=== PATIENT | female | born 1980 | race African-American/Black ===

== ENCOUNTER 2017-02-28 01:43 | Inpatient (IN) | payer BC ==
[~2017-02-28] VITALS: Ht 167.6 cm; Wt 120.8 kg
[2017-02-28 05:01] LABS: PLATELET COUNT 313 x10^3mcL (130-400)
[2017-02-28 05:04] LABS: BASOPHIL % 3.7 % (0-2); RED CELL DISTRIBUTION WIDTH 19.3 % (11.5-14.5)
[2017-02-28 05:06] LABS: CARBON DIOXIDE 22.4 mmol/L (21-32); CHLORIDE SERUM 107 mmol/L (98-107); CREATININE SERUM 0.6 mg/dL (0.6-1.0); GFR1 > 60 mL/min; GLUCOSE SERUM 97 mg/dL (74-106); POTASSIUM SERUM 3.9 mmol/L (3.5-5.1); SODIUM SERUM 140 mmol/L (136-145)
[2017-02-28 05:12] LABS: ALBUMIN 3.5 g/dL (3.4-5.0); ALKALINE PHOSPHATASE 67 U/L (46-116); ALT/SGPT 33 U/L (14-59); AST/SGOT 31 U/L (15-37); BILIRUBIN TOTAL 0.26 mg/dL (0.20-1.00)
[2017-02-28 05:20] LABS: TOTAL PROTEIN, SERUM 8.4 g/dL (6.4-8.2)
[2017-02-28 09:48] VITALS: BP 155/90
[2017-02-28 10:52] LABS: T3 TOTAL 0.86 ng/mL
[2017-02-28 10:55] LABS: CHOLESTEROL/HDL RATIO 1.8; MAGNESIUM 1.8 mg/dL (1.8-2.4)
[2017-02-28 10:58] LABS: FREE T4 1.19 ng/dL (0.76-1.46); FREE THYROXINE INDEX 3.2 ug/dL (1.4-4.5); T4(THYROXINE) 8.8 ug/dL (4.7-13.3)
[2017-02-28 12:06] VITALS: BP 148/91
[2017-02-28 17:52] VITALS: BP 138/88
[2017-02-28 21:38] VITALS: BP 140/91
[2017-03-01 06:15] VITALS: BP 139/90
[2017-03-01 06:34] LABS: CARBON DIOXIDE 27.3 mmol/L (21-32); CHLORIDE SERUM 105 mmol/L (98-107); CREATININE SERUM 0.6 mg/dL (0.6-1.0); GFR1 > 60 mL/min; GLUCOSE SERUM 99 mg/dL (74-106); POTASSIUM SERUM 3.8 mmol/L (3.5-5.1); SODIUM SERUM 137 mmol/L (136-145)
[2017-03-01 06:54] LABS: BASOPHIL % 0.8 % (0-2); PLATELET COUNT 257 x10^3mcL (130-400)
[2017-03-01 07:06] LABS: RED CELL DISTRIBUTION WIDTH 17.5 % (11.5-14.5)
[2017-03-01 07:30] VITALS: BP 162/97
[2017-03-01 11:35] VITALS: BP 131/79
[2017-03-01 16:10] VITALS: BP 141/99
[2017-03-01 19:51] LABS: microscopic required? NO
[2017-03-01 19:58] LABS: urine erythrocyte NEGATIVE (NEGATIVE)
[2017-03-01 20:10] LABS: AMPHETAMINE QUAL UR NONE DETECTED (NEG <=1000)
[2017-03-01 20:54] VITALS: BP 120/63
[2017-03-02 05:14] VITALS: BP 124/79
[2017-03-02 06:40] LABS: CALCIUM 8.1 mg/dL (8.5-10.1); CARBON DIOXIDE 25.7 mmol/L (21-32); CHLORIDE SERUM 105 mmol/L (98-107); CREATININE SERUM 0.5 mg/dL (0.6-1.0); GFR1 > 60 mL/min; GLUCOSE SERUM 107 mg/dL (74-106); MAGNESIUM 1.7 mg/dL (1.8-2.4); POTASSIUM SERUM 3.6 mmol/L (3.5-5.1); SODIUM SERUM 138 mmol/L (136-145)
[2017-03-02 06:54] LABS: PLATELET COUNT 254 x10^3mcL (130-400)
[2017-03-02 06:55] LABS: BASOPHIL % 0 % (0-2); RED CELL DISTRIBUTION WIDTH 18.8 % (11.5-14.5)
[2017-03-02 06:56] LABS: rbc morphology (normal/abnorm) ABNORMAL (NORMAL)
[2017-03-02] MEDS ORDERED: CLEOCIN HCL300 MG PO (09:36)
[2017-03-02] MEDS ORDERED: LAC PO (09:37)
[2017-03-02] MEDS ORDERED: NOR10T PO (09:37)
[2017-03-02] MEDS ORDERED: DOK100 M3 PO (09:39)
[2017-03-02 11:43] VITALS: BP 124/79
[2017-03-02 11:46] VITALS: Ht 167.6 cm; Wt 120.8 kg
== END 2017-03-02 13:20 | disposition home or self-care (01) | DRG 907 ==
LOC: ED 01:43 → DU 08:39
PROVIDERS: Emergency Medicine Emergency Medical Services; Surgery; ADMIT Family Medicine
PROC: 0J980ZZ Drainage of Abdomen Subcutaneous Tissue and Fascia, Open Approach (ICD-10-PCS; principal; 2017-03-01 08:00)
DX: L76.34 Postprocedural seroma of skin and subcutaneous tissue following other procedure (principal); N17.0 Acute kidney failure with tubular necrosis; Z68.41 Body mass index [BMI] 40.0-44.9, adult; N13.30 Unspecified hydronephrosis; R73.03 Prediabetes; F41.9 Anxiety disorder, unspecified; D50.9 Iron deficiency anemia, unspecified; E66.01 Morbid (severe) obesity due to excess calories; Z88.5 Allergy status to narcotic agent; Z88.8 Allergy status to other drugs, medicaments and biological substances; Z90.49 Acquired absence of other specified parts of digestive tract
CPT/HCPCS: 83880; 84439; 94150; J1170; J1200; J1580; J1885; J2175; J2250; J2270; J2405; J3010; J3490; J7030; Q0092; Q9967

== ENCOUNTER 2017-03-06 16:44 | Observation (INO) | payer BC ==
[~2017-03-06] VITALS: Ht 167.6 cm; Wt 122.1 kg
[~2017-03-06 16:44] MED LIST: CLEOCIN HCL300 MG PO; DOK100 M3 PO; LAC PO; NOR10T PO
[2017-03-06 17:18] LABS: BASOPHIL % 1.9 % (0-2); PLATELET COUNT 356 x10^3mcL (130-400)
[2017-03-06 17:19] LABS: RED CELL DISTRIBUTION WIDTH 18.6 % (11.5-14.5)
[2017-03-06 17:22] LABS: CALCIUM 8.5 mg/dL (8.5-10.1); CARBON DIOXIDE 29.8 mmol/L (21-32); CHLORIDE SERUM 100 mmol/L (98-107); CREATININE SERUM 0.6 mg/dL (0.6-1.0); GFR1 > 60 mL/min; GLUCOSE SERUM 115 mg/dL (74-106); POTASSIUM SERUM 3.8 mmol/L (3.5-5.1); SODIUM SERUM 137 mmol/L (136-145)
[2017-03-06 17:26] LABS: ALKALINE PHOSPHATASE 84 U/L (46-116); ALT/SGPT 39 U/L (14-59); AST/SGOT 23 U/L (15-37); BILIRUBIN TOTAL 0.42 mg/dL (0.20-1.00); TOTAL PROTEIN, SERUM 7.7 g/dL (6.4-8.2)
[2017-03-06 17:27] LABS: ALBUMIN 3.1 g/dL (3.4-5.0)
[2017-03-06 19:31] LABS: UA SPECIFIC GRAVITY 1.015 (1.005-1.035); microscopic required? YES; urine erythrocyte NEGATIVE (NEGATIVE)
[2017-03-06 22:44] VITALS: BP 151/93
[2017-03-06 22:52] LABS: MAGNESIUM 1.7 mg/dL (1.8-2.4); PHOSPHOROUS 4.6 mg/dL (2.5-4.9)
[2017-03-06] MEDS ORDERED: LORAZEPAM1 MG PO (23:55)
[2017-03-06] MEDS ORDERED: PHENTERMINE H37.5 M3 PO (23:56)
[2017-03-07 06:16] VITALS: BP 137/90
[2017-03-07 07:32] LABS: BASOPHIL % 0.4 % (0-2); PLATELET COUNT 317 x10^3mcL (130-400); RED CELL DISTRIBUTION WIDTH 18.1 % (11.5-14.5)
[2017-03-07 07:33] LABS: rbc morphology (normal/abnorm) ABNORMAL (NORMAL)
[2017-03-07 09:15] VITALS: BP 150/99
[2017-03-07 13:22] VITALS: BP 141/91
[2017-03-07] MEDS ORDERED: ZES10 PO (16:08)
[2017-03-07] MEDS ORDERED: CIPRO500 MG PO (16:20)
[2017-03-07 16:28] VITALS: BP 140/96
== END 2017-03-07 16:56 | disposition home or self-care (01) | DRG 689 ==
LOC: ED 16:44 → DU 21:09
PROVIDERS: Emergency Medicine; ADMIT Family Medicine
DX: N39.0 Urinary tract infection, site not specified (principal); G93.41 Metabolic encephalopathy; E44.0 Moderate protein-calorie malnutrition; Z68.41 Body mass index [BMI] 40.0-44.9, adult; F33.2 Major depressive disorder, recurrent severe without psychotic features; E83.39 Other disorders of phosphorus metabolism; R73.03 Prediabetes; D50.9 Iron deficiency anemia, unspecified; F41.1 Generalized anxiety disorder; F43.10 Post-traumatic stress disorder, unspecified; F10.20 Alcohol dependence, uncomplicated; E78.1 Pure hyperglyceridemia; E66.9 Obesity, unspecified; Z98.84 Bariatric surgery status
CPT/HCPCS: 82962; 83880; G0378; J0696; J1170; J2405; J3475; J7030; Q0092

== ENCOUNTER 2017-03-09 23:08 | Emergency (ER) | payer BC ==
[~2017-03-09 23:08] MED LIST changes: +CIPRO500 MG PO; +LORAZEPAM1 MG PO; +PHENTERMINE H37.5 M3 PO; +ZES10 PO
[2017-03-10 00:34] VITALS: BP 123/65
== END 2017-03-10 00:34 | disposition home or self-care (01) ==
LOC: ED 23:08
DX: K91.872 Postprocedural seroma of a digestive system organ or structure following a digestive system procedure (principal)
CPT/HCPCS: Q0092

== ENCOUNTER 2017-05-06 19:50 | Inpatient (IN) | payer BC ==
[~2017-05-06] VITALS: Ht 167.6 cm; Wt 126.7 kg
[2017-05-06 21:27] LABS: PLATELET COUNT 302 x10^3mcL (130-400)
[2017-05-06 21:37] LABS: CALCIUM 8.3 mg/dL (8.5-10.1); CHLORIDE SERUM 104 mmol/L (98-107); CREATININE SERUM 0.8 mg/dL (0.6-1.0); GFR1 > 60 mL/min; GLUCOSE SERUM 91 mg/dL (74-106); POTASSIUM SERUM 4.3 mmol/L (3.5-5.1); SODIUM SERUM 137 mmol/L (136-145)
[2017-05-06 21:38] LABS: RED CELL DISTRIBUTION WIDTH 18.6 % (11.5-14.5)
[2017-05-06 21:41] LABS: ALKALINE PHOSPHATASE 64 U/L (46-116); ALT/SGPT 31 U/L (14-59); AST/SGOT 26 U/L (15-37); BILIRUBIN TOTAL 0.23 mg/dL (0.20-1.00); LIPASE 304 IU/L (73-393)
[2017-05-06 21:42] LABS: ALBUMIN 3.1 g/dL (3.4-5.0)
[2017-05-06 21:54] LABS: ATYPICAL LYMPH 1 %; MONOCYTE 9 % (0-7); SEGMENTED NEUTROPHILS 36 % (37-75); rbc morphology (normal/abnorm) ABNORMAL (NORMAL)
[2017-05-06 21:55] LABS: tear drop cell (dacryocyte) 1+
[2017-05-06 21:56] LABS: PLATELET MORPHOLOGY LARGE PLATELET SEEN
[2017-05-06] MEDS ORDERED: MULTI-VITAMINS1 TAB PO (23:46)
[2017-05-06] MEDS ORDERED: VITAMIN D350000 UNIT PO (23:48)
[2017-05-07] VITALS (8 sets, daily range): BP systolic 103–144; BP diastolic 53–85
[2017-05-07 01:33] LABS: UA SPECIFIC GRAVITY 1.025 (1.005-1.035); microscopic required? YES; urine erythrocyte NEGATIVE (NEGATIVE)
[2017-05-07 02:00] LABS: AMPHETAMINE QUAL UR NONE DETECTED (NEG <=1000)
[2017-05-07 02:02] LABS: T3 TOTAL 0.95 ng/mL
[2017-05-07 02:46] LABS: FREE T4 0.96 ng/dL (0.76-1.46); FREE THYROXINE INDEX 2.8 ug/dL (1.4-4.5); T4(THYROXINE) 8.8 ug/dL (4.7-13.3)
[2017-05-07 02:57] LABS: MAGNESIUM 2.1 mg/dL (1.8-2.4); PHOSPHOROUS 3.1 mg/dL (2.5-4.9)
[2017-05-07 02:58] LABS: CHOLESTEROL/HDL RATIO 1.5
[2017-05-07 06:38] LABS: IRON 30 ug/dL (50-170); TOTAL IRON BINDING CAPACITY 471 ug/dL (250-450)
[2017-05-07 06:40] LABS: BASOPHIL % 0.3 % (0-2); PLATELET COUNT 217 x10^3mcL (130-400)
[2017-05-07 06:49] LABS: CALCIUM 7.7 mg/dL (8.5-10.1); CARBON DIOXIDE 25.8 mmol/L (21-32); CHLORIDE SERUM 105 mmol/L (98-107); CREATININE SERUM 0.8 mg/dL (0.6-1.0); GFR1 > 60 mL/min; GLUCOSE SERUM 84 mg/dL (74-106); PHOSPHOROUS 4.8 mg/dL (2.5-4.9); POTASSIUM SERUM 4.1 mmol/L (3.5-5.1); SODIUM SERUM 138 mmol/L (136-145)
[2017-05-07 06:52] LABS: RED CELL DISTRIBUTION WIDTH 18.3 % (11.5-14.5)
[2017-05-07 12:36] LABS: RED BLOOD CELLS 3.81 M/mm3 (4.10-5.10)
[2017-05-08 05:45] VITALS: BP 115/72
[2017-05-08 07:48] LABS: PLATELET COUNT 223 x10^3mcL (130-400)
[2017-05-08 07:55] LABS: CARBON DIOXIDE 21.8 mmol/L (21-32); CHLORIDE SERUM 108 mmol/L (98-107); CREATININE SERUM 0.8 mg/dL (0.6-1.0); GFR1 > 60 mL/min; GLUCOSE SERUM 100 mg/dL (74-106); POTASSIUM SERUM 3.9 mmol/L (3.5-5.1); SODIUM SERUM 138 mmol/L (136-145)
[2017-05-08 09:26] LABS: BAND NEUTROPHIL 0 % (0-10); BASOPHIL 0 % (0-2); MONOCYTE 5 % (0-7); SEGMENTED NEUTROPHILS 75 % (37-75)
[2017-05-08 09:27] LABS: rbc morphology (normal/abnorm) ABNORMAL (NORMAL)
[2017-05-08 09:28] LABS: PLATELET MORPHOLOGY PLATELETS NORMAL
[2017-05-08 09:50] VITALS: BP 120/76
[2017-05-08 13:05] VITALS: BP 130/68
[2017-05-08 17:07] VITALS: BP 129/79
[2017-05-08 21:32] VITALS: BP 150/90
[2017-05-09 05:58] VITALS: BP 130/79
[2017-05-09 08:47] LABS: BASOPHIL % 0.5 % (0-2); PLATELET COUNT 203 x10^3mcL (130-400); RED CELL DISTRIBUTION WIDTH 18.9 % (11.5-14.5)
[2017-05-09 08:50] LABS: rbc morphology (normal/abnorm) ABNORMAL (NORMAL)
[2017-05-09 10:20] VITALS: BP 112/71
[2017-05-09 18:23] VITALS: BP 141/78
[2017-05-09 21:27] VITALS: BP 116/73
[2017-05-10 06:04] VITALS: BP 118/77
[2017-05-10 06:14] LABS: BASOPHIL % 0.7 % (0-2); PLATELET COUNT 215 x10^3mcL (130-400)
[2017-05-10 06:27] LABS: CALCIUM 8.2 mg/dL (8.5-10.1); CARBON DIOXIDE 22.6 mmol/L (21-32); CHLORIDE SERUM 109 mmol/L (98-107); CREATININE SERUM 0.7 mg/dL (0.6-1.0); GFR1 > 60 mL/min; GLUCOSE SERUM 84 mg/dL (74-106); POTASSIUM SERUM 4.2 mmol/L (3.5-5.1); SODIUM SERUM 139 mmol/L (136-145)
[2017-05-10 06:40] LABS: RED CELL DISTRIBUTION WIDTH 18.7 % (11.5-14.5)
[2017-05-10 09:55] VITALS: BP 162/93
[2017-05-10 17:55] VITALS: BP 143/95
[2017-05-10 21:40] VITALS: BP 112/66
[2017-05-11 05:09] VITALS: BP 106/68
[2017-05-11 06:42] LABS: BASOPHIL % 0.7 % (0-2); PLATELET COUNT 207 x10^3mcL (130-400)
[2017-05-11 06:51] LABS: CARBON DIOXIDE 22.3 mmol/L (21-32); CHLORIDE SERUM 109 mmol/L (98-107); CREATININE SERUM 0.7 mg/dL (0.6-1.0); GFR1 > 60 mL/min; GLUCOSE SERUM 88 mg/dL (74-106); POTASSIUM SERUM 4.1 mmol/L (3.5-5.1); SODIUM SERUM 139 mmol/L (136-145)
[2017-05-11 07:05] LABS: RED CELL DISTRIBUTION WIDTH 18.7 % (11.5-14.5)
[2017-05-11 07:06] LABS: rbc morphology (normal/abnorm) ABNORMAL (NORMAL)
[2017-05-11 09:34] VITALS: BP 116/66; BP 96/63
[2017-05-11 21:20] VITALS: BP 148/93
[2017-05-12 05:31] VITALS: BP 116/72
[2017-05-12 06:07] LABS: BASOPHIL % 0.9 % (0-2); PLATELET COUNT 217 x10^3mcL (130-400)
[2017-05-12 06:36] LABS: CARBON DIOXIDE 23.6 mmol/L (21-32); CHLORIDE SERUM 108 mmol/L (98-107); CREATININE SERUM 0.6 mg/dL (0.6-1.0); GFR1 > 60 mL/min; GLUCOSE SERUM 91 mg/dL (74-106); POTASSIUM SERUM 4.2 mmol/L (3.5-5.1); SODIUM SERUM 139 mmol/L (136-145)
[2017-05-12 07:06] LABS: RED CELL DISTRIBUTION WIDTH 19.3 % (11.5-14.5)
[2017-05-12 09:32] VITALS: BP 148/82
[2017-05-12 09:55] VITALS: BP 133/75
[2017-05-12 21:43] VITALS: BP 147/89
[2017-05-13 05:41] VITALS: BP 121/60
[2017-05-13 06:45] LABS: BASOPHIL % 0.6 % (0-2); PLATELET COUNT 226 x10^3mcL (130-400)
[2017-05-13 07:24] LABS: RED CELL DISTRIBUTION WIDTH 19.5 % (11.5-14.5)
[2017-05-13 09:30] VITALS: BP 138/87
[2017-05-13] MEDS ORDERED: LIPI10 PO (10:37)
[2017-05-13] MEDS ORDERED: SERTRALINE50 M1 PO (10:38)
[2017-05-13] MEDS ORDERED: TRAZODONE100 MG PO (10:39)
[2017-05-13] MEDS ORDERED: VITC PO (10:42)
[2017-05-13 11:38] VITALS: BP 138/87
[2017-05-13] MEDS ORDERED: ZESTRIL20 MG PO (11:55)
[2017-05-13] MEDS ORDERED: NEU300 PO (11:56)
[2017-05-13] MEDS ORDERED: NOVAPLUS F0.05 MG/Ac (11:58)
[2017-05-13] MEDS ORDERED: MECLIZINE HCL12.5 MG PO (11:59)
[2017-05-13] MEDS ORDERED: ZOF4 PO (11:59)
== END 2017-05-13 13:52 | disposition home or self-care (01) | DRG 853 ==
LOC: ED 19:50 → DU 05-07 00:07 → MU 05-09 11:44
PROVIDERS: Emergency Medicine; Family Medicine; Family Medicine Sports Medicine; Surgery; ADMIT Student in an Organized Health Care Education/Training Program
PROC: 0W9F00Z Drainage of Abdominal Wall with Drainage Device, Open Approach (ICD-10-PCS; principal; 2017-05-08 08:00)
DX: A41.9 Sepsis, unspecified organism (principal); G93.41 Metabolic encephalopathy; K91.873 Postprocedural seroma of a digestive system organ or structure following other procedure; Z68.42 Body mass index [BMI] 45.0-49.9, adult; E44.0 Moderate protein-calorie malnutrition; N39.0 Urinary tract infection, site not specified; R65.20 Severe sepsis without septic shock; K72.90 Hepatic failure, unspecified without coma; D50.9 Iron deficiency anemia, unspecified; I07.1 Rheumatic tricuspid insufficiency; E78.1 Pure hyperglyceridemia; Z88.8 Allergy status to other drugs, medicaments and biological substances; Z90.49 Acquired absence of other specified parts of digestive tract; Z82.49 Family history of ischemic heart disease and other diseases of the circulatory system; E66.01 Morbid (severe) obesity due to excess calories; F10.20 Alcohol dependence, uncomplicated; Y90.9 Presence of alcohol in blood, level not specified; F41.1 Generalized anxiety disorder
CPT/HCPCS: 83880; 84439; C1729; G0480; J0690; J0696; J1170; J1200; J1580; J1885; J2001; J2250; J2405; J2916; J3490; J7030; J7120; J8597; Q0092

== ENCOUNTER 2017-05-29 17:04 | Inpatient (IN) | payer BC ==
[~2017-05-29] VITALS: Ht 167.6 cm; Wt 124.8 kg
[~2017-05-29 17:04] MED LIST changes: +LIPI10 PO; +MECLIZINE HCL12.5 MG PO; +MULTI-VITAMINS1 TAB PO; +NEU300 PO; +NOVAPLUS F0.05 MG/Ac; +SERTRALINE50 M1 PO; +TRAZODONE100 MG PO; +VITAMIN D350000 UNIT PO; +VITC PO; +ZESTRIL20 MG PO; +ZOF4 PO
[2017-05-29 19:34] LABS: BASOPHIL % 1.7 % (0-2)
[2017-05-29 19:53] LABS: UA SPECIFIC GRAVITY <=1.005 (1.005-1.035); microscopic required? YES; urine erythrocyte TRACE (NEGATIVE)
[2017-05-29 19:54] LABS: PLATELET COUNT 505 x10^3mcL (130-400); RED CELL DISTRIBUTION WIDTH 19.5 % (11.5-14.5)
[2017-05-29 19:56] LABS: CALCIUM 8.9 mg/dL (8.5-10.1); CARBON DIOXIDE 22.4 mmol/L (21-32); CHLORIDE SERUM 103 mmol/L (98-107); CREATININE SERUM 0.7 mg/dL (0.6-1.0); GFR1 > 60 mL/min; GLUCOSE SERUM 106 mg/dL (74-106); POTASSIUM SERUM 3.8 mmol/L (3.5-5.1); SODIUM SERUM 139 mmol/L (136-145)
[2017-05-29 20:01] LABS: ALKALINE PHOSPHATASE 72 U/L (46-116); ALT/SGPT 15 U/L (14-59); AST/SGOT 14 U/L (15-37); BILIRUBIN TOTAL 0.24 mg/dL (0.20-1.00)
[2017-05-29 20:02] LABS: ALBUMIN 2.8 g/dL (3.4-5.0); TOTAL PROTEIN, SERUM 8.3 g/dL (6.4-8.2); rbc morphology (normal/abnorm) ABNORMAL (NORMAL)
[2017-05-29] MEDS ORDERED: NATURE'S BLEND F1 MG PO (20:15)
[2017-05-29 20:17] LABS: AMPHETAMINE QUAL UR NONE DETECTED (NEG <=1000)
[2017-05-29 20:22] LABS: T3 TOTAL 0.71 ng/mL
[2017-05-29 20:27] LABS: FREE T4 1.16 ng/dL (0.76-1.46); FREE THYROXINE INDEX 2.9 ug/dL (1.4-4.5); T4(THYROXINE) 8.7 ug/dL (4.7-13.3)
[2017-05-29 20:32] LABS: MAGNESIUM 1.8 mg/dL (1.8-2.4); PHOSPHOROUS 2.7 mg/dL (2.5-4.9)
[2017-05-29 20:33] LABS: CHOLESTEROL/HDL RATIO 1.4
[2017-05-29 21:44] VITALS: BP 132/72
[2017-05-30 01:49] LABS: TOTAL IRON BINDING CAPACITY 286 ug/dL (250-450)
[2017-05-30 02:32] LABS: IRON 14 ug/dL (50-170)
[2017-05-30 06:08] VITALS: BP 91/50
[2017-05-30 07:00] LABS: CARBON DIOXIDE 21.6 mmol/L (21-32); CHLORIDE SERUM 108 mmol/L (98-107); CREATININE SERUM 0.6 mg/dL (0.6-1.0); GFR1 > 60 mL/min; GLUCOSE SERUM 81 mg/dL (74-106); POTASSIUM SERUM 3.8 mmol/L (3.5-5.1); SODIUM SERUM 141 mmol/L (136-145)
[2017-05-30 07:40] LABS: BASOPHIL % 0.6 % (0-2); PLATELET COUNT 367 x10^3mcL (130-400); RED CELL DISTRIBUTION WIDTH 19.2 % (11.5-14.5)
[2017-05-30 07:43] LABS: rbc morphology (normal/abnorm) ABNORMAL (NORMAL)
[2017-05-30 08:23] LABS: RED BLOOD CELLS 3.25 M/mm3 (4.10-5.10)
[2017-05-30 10:19] VITALS: BP 104/53
[2017-05-30 14:01] VITALS: BP 118/70
[2017-05-30 17:42] VITALS: BP 104/71
[2017-05-30 21:30] VITALS: BP 104/67
[2017-05-31 05:08] VITALS: BP 137/74
[2017-05-31 07:28] LABS: BASOPHIL % 0.4 % (0-2); PLATELET COUNT 344 x10^3mcL (130-400)
[2017-05-31 07:31] LABS: RED CELL DISTRIBUTION WIDTH 19.4 % (11.5-14.5)
[2017-05-31 07:37] LABS: CALCIUM 7.9 mg/dL (8.5-10.1); CARBON DIOXIDE 25.3 mmol/L (21-32); CHLORIDE SERUM 107 mmol/L (98-107); CREATININE SERUM 0.6 mg/dL (0.6-1.0); GFR1 > 60 mL/min; GLUCOSE SERUM 97 mg/dL (74-106); POTASSIUM SERUM 3.6 mmol/L (3.5-5.1); SODIUM SERUM 139 mmol/L (136-145)
[2017-05-31 08:31] LABS: rbc morphology (normal/abnorm) ABNORMAL (NORMAL)
[2017-05-31 09:57] VITALS: BP 120/83
[2017-05-31 18:44] VITALS: BP 112/70
[2017-05-31 21:38] VITALS: BP 132/70
[2017-06-01 06:10] VITALS: BP 99/49
[2017-06-01 06:34] LABS: BASOPHIL % 0.1 % (0-2); PLATELET COUNT 367 x10^3mcL (130-400)
[2017-06-01 06:56] LABS: CALCIUM 8.1 mg/dL (8.5-10.1); CARBON DIOXIDE 27.2 mmol/L (21-32); CHLORIDE SERUM 107 mmol/L (98-107); CREATININE SERUM 0.6 mg/dL (0.6-1.0); GFR1 > 60 mL/min; GLUCOSE SERUM 99 mg/dL (74-106); MAGNESIUM 1.8 mg/dL (1.8-2.4); POTASSIUM SERUM 4.2 mmol/L (3.5-5.1); SODIUM SERUM 140 mmol/L (136-145)
[2017-06-01 07:14] LABS: RED CELL DISTRIBUTION WIDTH 19.2 % (11.5-14.5)
[2017-06-01 07:15] LABS: rbc morphology (normal/abnorm) ABNORMAL (NORMAL)
[2017-06-01 09:52] VITALS: BP 152/91
[2017-06-01 17:28] VITALS: BP 101/58
[2017-06-01 21:48] VITALS: BP 105/60
[2017-06-02 06:48] VITALS: BP 119/70
[2017-06-02 07:57] LABS: BASOPHIL % 0.3 % (0-2); PLATELET COUNT 359 x10^3mcL (130-400)
[2017-06-02 08:12] LABS: RED CELL DISTRIBUTION WIDTH 19.3 % (11.5-14.5); rbc morphology (normal/abnorm) ABNORMAL (NORMAL)
[2017-06-02 09:24] VITALS: BP 109/69
[2017-06-02 17:21] VITALS: BP 124/75
[2017-06-02 21:34] VITALS: BP 132/85
[2017-06-03 06:26] LABS: BASOPHIL % 0.4 % (0-2); PLATELET COUNT 368 x10^3mcL (130-400)
[2017-06-03 06:37] VITALS: BP 138/72
[2017-06-03 06:53] LABS: RED CELL DISTRIBUTION WIDTH 19.1 % (11.5-14.5)
[2017-06-03 06:54] LABS: rbc morphology (normal/abnorm) ABNORMAL (NORMAL)
[2017-06-03 09:46] VITALS: BP 99/61
[2017-06-03 17:24] VITALS: BP 131/87
[2017-06-03 20:09] VITALS: BP 117/77
[2017-06-04 05:49] VITALS: BP 100/61
[2017-06-04 07:00] LABS: BASOPHIL % 0.4 % (0-2); PLATELET COUNT 389 x10^3mcL (130-400)
[2017-06-04 07:03] LABS: CALCIUM 8.6 mg/dL (8.5-10.1); CARBON DIOXIDE 27.6 mmol/L (21-32); CHLORIDE SERUM 105 mmol/L (98-107); CREATININE SERUM 0.6 mg/dL (0.6-1.0); GFR1 > 60 mL/min; GLUCOSE SERUM 95 mg/dL (74-106); MAGNESIUM 1.8 mg/dL (1.8-2.4); SODIUM SERUM 140 mmol/L (136-145)
[2017-06-04 07:15] LABS: RED CELL DISTRIBUTION WIDTH 19.4 % (11.5-14.5)
[2017-06-04 09:23] VITALS: BP 140/85
[2017-06-04 12:53] VITALS: BP 104/51
[2017-06-04 17:25] VITALS: BP 128/73
[2017-06-04 20:49] VITALS: BP 123/78
[2017-06-05 04:56] VITALS: BP 133/87
[2017-06-05] MEDS ORDERED: DIFLUCAN200 MG PO (05:56)
[2017-06-05] MEDS ORDERED: LAC PO (05:58)
[2017-06-05] MEDS ORDERED: NEU300 PO (06:39)
[2017-06-05] MEDS ORDERED: VITC PO (06:39)
[2017-06-05] MEDS ORDERED: NOVAPLUS F0.05 MG/Ac (06:39)
[2017-06-05] MEDS ORDERED: VITAMIN D350000 UNIT PO (06:39)
[2017-06-05] MEDS ORDERED: NOR10T PO ×2 (06:39→06:40)
[2017-06-05] MEDS ORDERED: TRAZODONE100 MG PO (06:39)
[2017-06-05] MEDS ORDERED: NATURE'S BLEND F1 MG PO (06:39)
[2017-06-05] MEDS ORDERED: LIPI10 PO (06:39)
[2017-06-05] MEDS ORDERED: ZESTRIL20 MG PO (06:39)
[2017-06-05] MEDS ORDERED: SERTRALINE50 M1 PO (06:39)
[2017-06-05] MEDS ORDERED: ZOF4 PO (06:39)
[2017-06-05 06:48] LABS: CHLORIDE SERUM 102 mmol/L (98-107); CREATININE SERUM 0.7 mg/dL (0.6-1.0); GFR1 > 60 mL/min; GLUCOSE SERUM 117 mg/dL (74-106); SODIUM SERUM 137 mmol/L (136-145)
[2017-06-05 06:56] LABS: BASOPHIL % 1.9 % (0-2); PLATELET COUNT 400 x10^3mcL (130-400)
[2017-06-05] MEDS ORDERED: SENOKOT8.6 MG PO (08:36)
[2017-06-05 09:37] VITALS: BP 128/74
[2017-06-05 10:32] VITALS: BP 128/74
== END 2017-06-05 11:20 | disposition home or self-care (01) | DRG 901 ==
LOC: ED 17:04 → MU 19:34 → DU 19:34 → MU 05-30 16:06
PROVIDERS: Emergency Medicine; Student in an Organized Health Care Education/Training Program; Surgery; ADMIT Family Medicine
PROC: 0W9F0ZZ Drainage of Abdominal Wall, Open Approach (ICD-10-PCS; principal; 2017-06-01 09:00)
PROC: 0JB80ZZ Excision of Abdomen Subcutaneous Tissue and Fascia, Open Approach (ICD-10-PCS; 2017-06-04)
DX: K91.873 Postprocedural seroma of a digestive system organ or structure following other procedure (principal); E43 Unspecified severe protein-calorie malnutrition; A41.9 Sepsis, unspecified organism; R65.20 Severe sepsis without septic shock; Z68.41 Body mass index [BMI] 40.0-44.9, adult; E66.01 Morbid (severe) obesity due to excess calories; D50.9 Iron deficiency anemia, unspecified; F41.8 Other specified anxiety disorders; Z88.8 Allergy status to other drugs, medicaments and biological substances; I10 Essential (primary) hypertension; Z90.49 Acquired absence of other specified parts of digestive tract; E78.00 Pure hypercholesterolemia, unspecified; F32.9 Major depressive disorder, single episode, unspecified; M79.2 Neuralgia and neuritis, unspecified; Z83.3 Family history of diabetes mellitus; Z82.3 Family history of stroke; Z82.49 Family history of ischemic heart disease and other diseases of the circulatory system
CPT/HCPCS: 82962; 83880; 84439; J0690; J1170; J1450; J1580; J1885; J1956; J2175; J2250; J2270; J2405; J2704; J3010; J3490; J7030; Q0092

== ENCOUNTER 2017-07-04 08:57 | Inpatient (IN) | payer BC ==
[~2017-07-04] VITALS: Ht 165.1 cm; Wt 120.2 kg
[~2017-07-04 08:57] MED LIST changes: +DIFLUCAN200 MG PO; +NATURE'S BLEND F1 MG PO; +SENOKOT8.6 MG PO
[2017-07-04 09:13] VITALS: Ht 165.1 cm; Wt 120.2 kg
[2017-07-04 10:35] LABS: microscopic required? YES; urine erythrocyte TRACE (NEGATIVE)
[2017-07-04 10:49] LABS: CALCIUM 8.5 mg/dL (8.5-10.1); CARBON DIOXIDE 23.4 mmol/L (21-32); CHLORIDE SERUM 100 mmol/L (98-107); CREATININE SERUM 0.7 mg/dL (0.6-1.0); GFR1 > 60 mL/min; GLUCOSE SERUM 101 mg/dL (74-106); POTASSIUM SERUM 3.9 mmol/L (3.5-5.1); SODIUM SERUM 133 mmol/L (136-145)
[2017-07-04 10:50] LABS: PLATELET COUNT 377 x10^3mcL (130-400)
[2017-07-04 10:51] LABS: BASOPHIL % 1.4 % (0-2)
[2017-07-04 10:59] LABS: ALKALINE PHOSPHATASE 112 U/L (46-116); ALT/SGPT 25 U/L (14-59); AST/SGOT 36 U/L (15-37); BILIRUBIN TOTAL 0.66 mg/dL (0.20-1.00); TOTAL PROTEIN, SERUM 7.4 g/dL (6.4-8.2)
[2017-07-04 11:01] LABS: ALBUMIN 2.4 g/dL (3.4-5.0)
[2017-07-04 11:04] LABS: FREE T4 1.12 ng/dL (0.76-1.46); FREE THYROXINE INDEX 2.2 ug/dL (1.4-4.5); T4(THYROXINE) 6.5 ug/dL (4.7-13.3)
[2017-07-04 11:09] LABS: CK-MB < 0.5 ng/mL (0-3.6); CREATINE KINASE 43 U/L (26-192)
[2017-07-04 11:20] LABS: C REACTIVE PROTEIN 21.8 mg/dL (<=0.9)
[2017-07-04 11:40] LABS: ERYTHROCYTE SED RATE 101 mm/hr (0-20)
[2017-07-04] MEDS ORDERED: NOR10T PO (13:33)
[2017-07-04] MEDS ORDERED: ATIVAN1 MG PO (13:33)
[2017-07-04 13:55] LABS: T3 TOTAL 0.72 ng/mL
[2017-07-04 14:50] LABS: MAGNESIUM 1.8 mg/dL (1.8-2.4)
[2017-07-04 14:55] LABS: CHOLESTEROL/HDL RATIO 1.5
[2017-07-04 15:01] VITALS: BP 127/58
[2017-07-04 18:16] VITALS: BP 121/56
[2017-07-04 18:27] LABS: AMPHETAMINE QUAL UR NONE DETECTED (NEG <=1000)
[2017-07-04 20:40] VITALS: BP 129/48
[2017-07-05 04:50] VITALS: BP 110/48
[2017-07-05 07:41] LABS: BASOPHIL % 0.2 % (0-2); PLATELET COUNT 325 x10^3mcL (130-400)
[2017-07-05 07:53] LABS: CALCIUM 8.1 mg/dL (8.5-10.1); CARBON DIOXIDE 23.2 mmol/L (21-32); CHLORIDE SERUM 102 mmol/L (98-107); CREATININE SERUM 0.8 mg/dL (0.6-1.0); GFR1 > 60 mL/min; GLUCOSE SERUM 106 mg/dL (74-106); POTASSIUM SERUM 3.5 mmol/L (3.5-5.1); SODIUM SERUM 135 mmol/L (136-145)
[2017-07-05 08:34] LABS: rbc morphology (normal/abnorm) ABNORMAL (NORMAL)
[2017-07-05 11:30] VITALS: BP 132/82
[2017-07-05 17:46] VITALS: BP 100/44
[2017-07-05 20:54] VITALS: BP 123/69
[2017-07-06 05:40] VITALS: BP 117/64
[2017-07-06 06:15] LABS: CALCIUM 7.9 mg/dL (8.5-10.1); CHLORIDE SERUM 105 mmol/L (98-107); CREATININE SERUM 0.7 mg/dL (0.6-1.0); GFR1 > 60 mL/min; GLUCOSE SERUM 109 mg/dL (74-106); POTASSIUM SERUM 3.2 mmol/L (3.5-5.1); SODIUM SERUM 139 mmol/L (136-145)
[2017-07-06 07:07] LABS: BASOPHIL % 0.1 % (0-2); PLATELET COUNT 322 x10^3mcL (130-400)
[2017-07-06 07:08] LABS: RED CELL DISTRIBUTION WIDTH 18.8 % (11.5-14.5)
[2017-07-06 07:15] LABS: rbc morphology (normal/abnorm) ABNORMAL (NORMAL)
[2017-07-06 17:20] VITALS: BP 130/72
[2017-07-06 21:03] VITALS: BP 119/63
[2017-07-07 05:18] VITALS: BP 122/79
[2017-07-07 07:39] LABS: CALCIUM 8.6 mg/dL (8.5-10.1); CARBON DIOXIDE 25.6 mmol/L (21-32); CHLORIDE SERUM 106 mmol/L (98-107); CREATININE SERUM 0.6 mg/dL (0.6-1.0); GFR1 > 60 mL/min; GLUCOSE SERUM 95 mg/dL (74-106); POTASSIUM SERUM 3.6 mmol/L (3.5-5.1); SODIUM SERUM 140 mmol/L (136-145)
[2017-07-07 09:50] VITALS: BP 137/85
[2017-07-07 10:03] LABS: BASOPHIL % 0.5 % (0-2)
[2017-07-07 10:04] LABS: PLATELET COUNT 403 x10^3mcL (130-400); RED CELL DISTRIBUTION WIDTH 19.4 % (11.5-14.5)
[2017-07-07 16:35] VITALS: BP 141/90
[2017-07-07 21:06] VITALS: BP 128/81
[2017-07-08 06:38] VITALS: BP 138/93
[2017-07-08 10:09] VITALS: BP 159/95
[2017-07-08 17:24] VITALS: BP 137/89
[2017-07-08 22:41] VITALS: BP 126/53
[2017-07-08 22:42] VITALS: BP 149/88
[2017-07-09 06:54] VITALS: BP 124/62
[2017-07-09 10:09] VITALS: BP 119/72
[2017-07-09 11:20] LABS: PLATELET COUNT 376 x10^3mcL (130-400)
[2017-07-09 11:25] LABS: RED CELL DISTRIBUTION WIDTH 19.5 % (11.5-14.5); rbc morphology (normal/abnorm) ABNORMAL (NORMAL)
[2017-07-09 16:38] VITALS: BP 138/81
[2017-07-09 18:59] LABS: CALCIUM 8.9 mg/dL (8.5-10.1); CARBON DIOXIDE 20.1 mmol/L (21-32); CHLORIDE SERUM 105 mmol/L (98-107); CREATININE SERUM 0.8 mg/dL (0.6-1.0); GFR1 > 60 mL/min; GLUCOSE SERUM 85 mg/dL (74-106); POTASSIUM SERUM 3.7 mmol/L (3.5-5.1); SODIUM SERUM 142 mmol/L (136-145)
[2017-07-09 21:20] VITALS: BP 123/83
[2017-07-10 05:09] VITALS: BP 113/74
[2017-07-10 07:40] LABS: BASOPHIL % 0.8 % (0-2); PLATELET COUNT 389 x10^3mcL (130-400)
[2017-07-10 07:45] LABS: CALCIUM 8.5 mg/dL (8.5-10.1); CARBON DIOXIDE 23.8 mmol/L (21-32); CHLORIDE SERUM 107 mmol/L (98-107); CREATININE SERUM 0.6 mg/dL (0.6-1.0); GFR1 > 60 mL/min; GLUCOSE SERUM 86 mg/dL (74-106); MAGNESIUM 1.8 mg/dL (1.8-2.4); PHOSPHOROUS 3.4 mg/dL (2.5-4.9); POTASSIUM SERUM 3.8 mmol/L (3.5-5.1); SODIUM SERUM 140 mmol/L (136-145)
[2017-07-10 09:05] VITALS: BP 153/92
[2017-07-10 17:17] VITALS: BP 139/87
[2017-07-10 21:20] VITALS: BP 141/91
[2017-07-11 05:29] VITALS: BP 126/71
[2017-07-11 10:26] VITALS: BP 147/97
[2017-07-11] MEDS ORDERED: COZ25 PO (14:07)
[2017-07-11] MEDS ORDERED: FER300 PO (14:07)
[2017-07-11 14:09] VITALS: BP 147/97
[2017-07-11] MEDS ORDERED: LEVAQUIN750 MG PO (14:49)
[2017-07-11] MEDS ORDERED: LAC PO (14:52)
[2017-07-11] MEDS ORDERED: TOPCARE LAXATIVE5 MG PO (14:54)
[2017-07-11] MEDS ORDERED: NOR10T PO (14:55)
== END 2017-07-11 17:43 | disposition home health service (06) | DRG 907 ==
LOC: ED 08:57 → MU 12:51 → DU 12:51 → MU 07-05 08:05 → DU 07-09 18:36 → MU 07-10 10:08
PROVIDERS: Family Medicine; Specialist; Student in an Organized Health Care Education/Training Program
PROC: 0W9F0ZZ Drainage of Abdominal Wall, Open Approach (ICD-10-PCS; principal; 2017-07-04)
DX: K91.873 Postprocedural seroma of a digestive system organ or structure following other procedure (principal); E43 Unspecified severe protein-calorie malnutrition; Z68.42 Body mass index [BMI] 45.0-49.9, adult; E87.1 Hypo-osmolality and hyponatremia; F41.8 Other specified anxiety disorders; I10 Essential (primary) hypertension; Z88.8 Allergy status to other drugs, medicaments and biological substances; Z90.49 Acquired absence of other specified parts of digestive tract; Z82.49 Family history of ischemic heart disease and other diseases of the circulatory system; Z82.3 Family history of stroke; Z80.9 Family history of malignant neoplasm, unspecified; E66.01 Morbid (severe) obesity due to excess calories; R73.03 Prediabetes; D64.9 Anemia, unspecified; E87.6 Hypokalemia
CPT/HCPCS: 36600; 83880; 84439; 94150; G0480; J0696; J1580; J1885; J1956; J2250; J2405; J3010; J3490; J7030; J7040; J7120; Q0092; Q0163

== ENCOUNTER 2017-07-30 21:55 | Emergency (ER) | payer BC ==
[~2017-07-30] VITALS: Ht 165.1 cm; Wt 119.5 kg
[~2017-07-30 21:55] MED LIST changes: +ATIVAN1 MG PO; +COZ25 PO; +FER300 PO; +LEVAQUIN750 MG PO; +TOPCARE LAXATIVE5 MG PO
[2017-07-30 21:57] VITALS: Ht 165.1 cm; Wt 119.5 kg
[2017-07-30 23:59] VITALS: BP 149/65
== END 2017-07-30 23:59 | disposition home or self-care (01) ==
LOC: ED 21:55
DX: L50.9 Urticaria, unspecified (principal); T78.40XA Allergy, unspecified, initial encounter; X58.XXXA Exposure to other specified factors, initial encounter
CPT/HCPCS: J1100; J1200; J3490; J7030